=== PATIENT | female | born 1960 | race Caucasian/White ===

== ENCOUNTER 2016-08-05 00:29 | Emergency (ER) | payer BC ==
[~2016-08-05] VITALS: Ht 165.1 cm; Wt 58.4 kg
[~2016-08-05 00:29] MED LIST: ABILIFY5 MG PO; AMBIEN10 MG PO; AZITHROMYCIN250 MG1 PO; BAYER CHEWABLE81 MG PO; EFFEXOR XR150 MG PO; EFFEXOR XR75 MG PO; KEFLEX500 MG PO; LUNESTA3 MG PO; METOPROLOL SUCC25 MG PO; NASAL SPRAY30 M4 BOTH NARES; NEURONTIN100 MG PO; NORCO 5/3251 TABLET PO; PERCOCET 5/31 TABLET PO; PROBIOTIC1 EAC2 PO; RISPERDAL0.25 MG PO; RISPERDAL0.5 MG PO; TRAZODONE HCL50 MG PO; TYLENOL EXTRA500 MG PO; XANAX1 MG PO; XARELTO15 MG PO; ZOLOFT50 MG PO
[2016-08-05 01:09] LABS: HEMATOCRIT 40.3 % (36.0-46.0); MCV 82.4 FL (83-99); PLATELET COUNT 315 K/uL (156-360); RBC DIS.WIDTH-SD 44.6 % (39-53); RED BLOOD COUNT 4.89 M/uL (3.80-5.20); WHITE BLOOD COUNT 16.1 K/uL (4.1-10.2)
[2016-08-05 01:38] LABS: CHLORIDE 106 mEq/L (99-109); POTASSIUM 4.5 mEq/L (3.7-5.4); SODIUM 139 mEq/L (136-147)
[2016-08-05 01:41] LABS: GLUCOSE 133 mg/dL (70-99)
[2016-08-05 01:42] LABS: ANION GAP 14 MEQ/L (2-14); TOTAL BILIRUBIN 1.1 mg/dL (0.0-1.0)
[2016-08-05 01:44] LABS: ALKALINE PHOSPHATASE 86 IU/L (3-129); GFR ESTIMATE (CALCULATED) 41 mL/min/
[2016-08-05 01:45] LABS: UREA NITROGEN (BUN) 17 mg/dL (9-23)
[2016-08-05 01:48] LABS: LIPASE 46 U/L (1.0-51.0)
[2016-08-05 02:15] LABS: ADD MIUA? YES; BILIRUBIN NEGATIVE; BLOOD LARGE; COLOR YELLOW ((YELLOW)); GLUCOSE (STRIP) NEGATIVE; KETONES 20; LEUKOCYTES LARGE; NITRITE NEGATIVE; PROTEIN (STRIP) 30; SPECIFIC GRAVITY 1.013 (1.000-1.030); UROBILINOGEN 0.2 MG/DL (0.2-1.0)
[2016-08-05 02:26] LABS: BACTERIA RARE /HPF; EPITHELIAL CELLS RARE /HPF; HYALINE CASTS 0-5 /LPF; MUCUS 4+ /LPF; RED BLOOD CELLS TNTC /HPF (0-5); UCUL ADDED? NO
[2016-08-05] MEDS ORDERED: ZOFRAN8 MG PO (03:48)
[2016-08-05] MEDS ORDERED: KEFLEX500 MG PO (03:48)
[2016-08-05 04:02] VITALS: BP 134/71
== END 2016-08-05 04:02 | disposition home or self-care (01) ==
LOC: EME 00:29
PROVIDERS: Emergency Medicine
DX: N20.1 Calculus of ureter (principal); N39.0 Urinary tract infection, site not specified; N28.9 Disorder of kidney and ureter, unspecified; F17.200 Nicotine dependence, unspecified, uncomplicated; Z88.6 Allergy status to analgesic agent
CPT/HCPCS: 74176; 80053; 81003; 83605; 83690; 85027; 99281; 99285; J0696; J2405; J3010; J7030; J7050

== ENCOUNTER 2017-09-30 20:26 | Inpatient (IN) | payer OTHER, BC ==
[~2017-09-30] VITALS: Ht 165.1 cm; Wt 55.3 kg
[~2017-09-30 20:26] MED LIST changes: +ZOFRAN8 MG PO
[2017-09-30 21:08] LABS: HEMATOCRIT 39.2 % (36.0-46.0); MCHC 33.2 G/DL (30.0-36.0); MCV 90.5 FL (83-99); PLATELET COUNT 320 K/uL (156-360); RBC DIS.WIDTH-CV 15.2 % (11.8-14.6); RED BLOOD COUNT 4.33 M/uL (3.80-5.20); WHITE BLOOD COUNT 12.2 K/uL (4.1-10.2)
[2017-09-30 21:14] LABS: CHLORIDE 105 mEq/L (99-109); POTASSIUM 4.8 mEq/L (3.7-5.4); SODIUM 142 mEq/L (136-147)
[2017-09-30 21:16] LABS: GLUCOSE 92 mg/dL (70-99)
[2017-09-30 21:20] LABS: CREATININE 0.9 mg/dL (0.6-1.3); GFR ESTIMATE (CALCULATED) > 59 mL/min/
[2017-09-30 21:21] LABS: UREA NITROGEN (BUN) 11 mg/dL (9-23)
[2017-09-30 21:25] LABS: TROP-I INTERPRETATION NEGATIVE; TROPONIN-I < 0.01 ng/mL (0.0-0.30)
[2017-09-30 22:53] LABS: INTER. NORMALIZED RATIO 1.1
[2017-09-30] MEDS ORDERED: VALIUM5 MG PO (23:28)
[2017-09-30] MEDS ORDERED: PERCOCET 10/1 TABLET PO (23:29)
[2017-09-30] MEDS ORDERED: LOPRESSOR25 MG PO (23:29)
[2017-09-30] MEDS ORDERED: ZOFRAN8 MG PO (23:30)
[2017-09-30] MEDS ORDERED: AMBIEN10 MG PO (23:30)
[2017-09-30] MEDS ORDERED: MS CONTIN,ORAMO15 M1 PO (23:30)
[2017-09-30] MEDS ORDERED: SINEQUAN75 MG PO (23:31)
[2017-09-30] MEDS ORDERED: DEXILANT60 MG PO (23:31)
[2017-09-30] MEDS ORDERED: PAXIL40 MG PO (23:31)
[2017-09-30] MEDS ORDERED: AFRIN,GENASAL D15 ML BOTH NARES (23:32)
[2017-10-01] VITALS (7 sets, daily range): BP systolic 94–113; BP diastolic 54–64
[2017-10-01 05:22] LABS: PTT 34.4 SEC (25-37)
[2017-10-01 06:36] LABS: HEMATOCRIT 33.8 % (36.0-46.0); MCH 29.2 PG (29.0-34.0); MCV 91.4 FL (83-99); PLATELET COUNT 278 K/uL (156-360); RBC DIS.WIDTH-CV 15.4 % (11.8-14.6); RBC DIS.WIDTH-SD 51.3 % (39-53); WHITE BLOOD COUNT 8.8 K/uL (4.1-10.2)
[2017-10-01 06:46] LABS: HEMOGLOBIN 10.8 G/DL (11.9-15.5)
[2017-10-01 11:21] LABS: BASOPHIL (%) 0.7 % (0-1); BASOPHIL COUNT 0.1 K/uL (0-0.1); EOSINOPHIL (%) 1.3 % (0-5); EOSINOPHIL COUNT 0.1 K/uL (0-0.3); IMMATURE GRANULOCYTE (%) 0.2 % (0.0-0.7); LYMPHOCYTE (%) 37.7 % (15-42); LYMPHOCYTE COUNT 3.4 K/uL (1.0-2.8); MONOCYTE (%) 8.2 % (3-12); MONOCYTE COUNT 0.7 K/uL (0-0.8); NEUTROPHIL (%) 51.9 % (45-76); NEUTROPHIL COUNT 4.7 K/uL (1.8-6.4)
[2017-10-01 11:27] LABS: INTER. NORMALIZED RATIO 1.8
[2017-10-01 12:13] LABS: TROP-I INTERPRETATION NEGATIVE; TROPONIN-I < 0.01 ng/mL (0.0-0.30)
[2017-10-01 13:36] LABS: HEMATOCRIT 33.8 % (36.0-46.0); HEMOGLOBIN 11.1 G/DL (11.9-15.5); MCH 29.9 PG (29.0-34.0); MCHC 32.8 G/DL (30.0-36.0); MCV 91.1 FL (83-99); PLATELET COUNT 273 K/uL (156-360); RBC DIS.WIDTH-CV 15.4 % (11.8-14.6); RBC DIS.WIDTH-SD 51.6 % (39-53); RED BLOOD COUNT 3.71 M/uL (3.80-5.20)
[2017-10-01 13:40] LABS: INTER. NORMALIZED RATIO 2.3
[2017-10-01 19:05] LABS: HEMATOCRIT 34.8 % (36.0-46.0); HEMOGLOBIN 11.2 G/DL (11.9-15.5); MCH 29.7 PG (29.0-34.0); MCHC 32.2 G/DL (30.0-36.0); MCV 92.3 FL (83-99); PLATELET COUNT 286 K/uL (156-360); RBC DIS.WIDTH-CV 15.1 % (11.8-14.6); RED BLOOD COUNT 3.77 M/uL (3.80-5.20); WHITE BLOOD COUNT 9.8 K/uL (4.1-10.2)
[2017-10-02 03:43] VITALS: BP 97/54
[2017-10-02 05:17] LABS: BASOPHIL (%) 0.5 % (0-1); BASOPHIL COUNT 0.1 K/uL (0-0.1); EOSINOPHIL COUNT 0.1 K/uL (0-0.3); HEMATOCRIT 33.4 % (36.0-46.0); HEMOGLOBIN 10.8 G/DL (11.9-15.5); IMMATURE GRANULOCYTE (%) 0.4 % (0.0-0.7); LYMPHOCYTE COUNT 2.9 K/uL (1.0-2.8); MCH 29.6 PG (29.0-34.0); MCHC 32.3 G/DL (30.0-36.0); MCV 91.5 FL (83-99); MONOCYTE (%) 9.2 % (3-12); NEUTROPHIL (%) 61.9 % (45-76); NEUTROPHIL COUNT 6.5 K/uL (1.8-6.4); PLATELET COUNT 279 K/uL (156-360); RBC DIS.WIDTH-SD 50.7 % (39-53); RED BLOOD COUNT 3.65 M/uL (3.80-5.20); WHITE BLOOD COUNT 10.6 K/uL (4.1-10.2)
[2017-10-02 06:17] LABS: CHLORIDE 107 MEQ/L (99-109); CREATININE 0.7 MG/DL (0.6-1.3); GFR ESTIMATE (CALCULATED) > 59 mL/min/; GLUCOSE 123 mg/dL (70-99); SODIUM 143 MEQ/L (136-147); UREA NITROGEN (BUN) 7 mg/dL (9-23)
[2017-10-02 06:20] LABS: POTASSIUM 3.8 MEQ/L (3.7-5.4)
[2017-10-02 07:41] VITALS: BP 114/57
[2017-10-02 11:44] VITALS: BP 117/60
[2017-10-02 15:30] VITALS: BP 113/56
[2017-10-02 19:33] VITALS: BP 123/63
[2017-10-02 23:55] VITALS: BP 107/56
[2017-10-03 03:30] VITALS: BP 104/55
[2017-10-03 07:50] VITALS: BP 115/58
[2017-10-03 12:00] VITALS: BP 110/54
[2017-10-03] MEDS ORDERED: NICOTINE PATCH1 EAC1 TD (13:55)
[2017-10-03] MEDS ORDERED: XARELTO15 MG PO (14:00)
[2017-10-03] MEDS ORDERED: XARELTO20 MG PO (14:01)
== END 2017-10-03 15:16 | disposition home or self-care (01) | DRG 176 ==
LOC: EME 20:26 → EDOF 10-01 00:42 → 5SOUTH 10-01 00:42 → ENRESERV 10-01 00:46 → 5SOUTH 10-01 01:28
PROVIDERS: Emergency Medicine; Hospitalist; Internal Medicine
DX: I26.99 Other pulmonary embolism without acute cor pulmonale (principal); Z86.711 Personal history of pulmonary embolism; Z86.718 Personal history of other venous thrombosis and embolism; J44.9 Chronic obstructive pulmonary disease, unspecified; F41.9 Anxiety disorder, unspecified; G89.29 Other chronic pain; F32.9 Major depressive disorder, single episode, unspecified; F17.200 Nicotine dependence, unspecified, uncomplicated; K31.84 Gastroparesis; Z90.710 Acquired absence of both cervix and uterus; Z98.51 Tubal ligation status
CPT/HCPCS: 70450; 71045; 71046; 71275; 80048; 83880; 84484; 85025; 85027; 85610; 85730; 93005; 93306; 99281; 99285; J7030